=== PATIENT | male | born 1965 | race Caucasian/White ===

== ENCOUNTER 2016-08-23 00:34 | Inpatient (IN) | payer OTHER ==
[~2016-08-23] VITALS: Ht 175.3 cm; Wt 90.7 kg
--- NOTE | 2016-08-23 01:32 | NUR ---
PT BIB AMBULANCE WITH C/O CHEST PRESSURE LIKE PAIN TO MID CHEST 06/02 SINCE 11PM.
[2016-08-23 02:11] LABS: CALCIUM 8.3 mg/dL (8.5-10.1); CARBON DIOXIDE 26.8 mmol/L (21-32); CHLORIDE SERUM 106 mmol/L (98-107); CREATININE SERUM 1.2 mg/dL (0.7-1.3); GFR1 > 60 mL/min; GLUCOSE SERUM 96 mg/dL (74-106); POTASSIUM SERUM 3.8 mmol/L (3.5-5.1); SODIUM SERUM 142 mmol/L (136-145)
[2016-08-23 02:13] LABS: PLATELET COUNT 221 x10^3mcL (130-400); RED CELL DISTRIBUTION WIDTH 12.2 % (11.5-14.5)
[2016-08-23 02:17] LABS: ALBUMIN 3.5 g/dL (3.4-5.0); ALKALINE PHOSPHATASE 43 U/L (46-116); ALT/SGPT 37 U/L (16-63); AST/SGOT 18 U/L (15-37)
--- NOTE | 2016-08-23 02:27 | NUR ---
PT RESTING IN BED WITH EYES CLOSED. NO SIGNS OF DISTRESS NOTED AT THIS TIME.
[2016-08-23] MEDS ORDERED: ZESTRIL20 MG PO (03:57)
--- NOTE | 2016-08-23 03:59 | NUR ---
PT SITTING UP RESTING IN BED WITH NO C/O PAIN AT THIS TIME.
--- NOTE | 2016-08-23 04:15 | NUR ---
PT UP TO RESTROOM.
--- NOTE | 2016-08-23 04:18 | NUR ---
REPORT GIVEN TO MERY BAIRES.
[2016-08-23 04:26] LABS: microscopic required? NO
[2016-08-23] MEDS ORDERED: HYDROXYCHLOROQ200 MG PO (04:36)
[2016-08-23] MEDS ORDERED: CYCLOBENZAPRINE10 MG PO (04:37)
[2016-08-23] MEDS ORDERED: [UNRECOGNIZED DRUG - CODE] PO (04:38)
--- NOTE | 2016-08-23 04:38 | NUR ---
DR FISCHER AT BEDSIDE.
[2016-08-23 04:47] LABS: urine erythrocyte NEGATIVE (NEGATIVE)
[2016-08-23 04:53] LABS: CHOLESTEROL/HDL RATIO 3.4
[2016-08-23 04:53] LABS: AMPHETAMINE QUAL UR NONE DETECTED (NEG <=1000)
[2016-08-23 05:01] LABS: T3 TOTAL 1.48 ng/mL
[2016-08-23 05:04] LABS: FREE T4 1.05 ng/dL (0.76-1.46); FREE THYROXINE INDEX 3.1 ug/dL (1.4-4.5); T4(THYROXINE) 8.4 ug/dL (4.7-13.3)
--- NOTE | 2016-08-23 05:19 | NUR ---
RECEIVED PT FROM ED. NO ACUTE DISTRESS. A/O X4. NO RESPIRATORY DISTRESS NOTED. PT STATES CHEST PRESSURE PAIN 04/04. BOWEL SOUNDS ACTIVE, LAST BM 08/23/16. VOIDING WELL. AMBULATORY. SKIN INTACT. IV PATENT AND INTACT. ORIENTED PT TO ROOM. BED IN LOWEST POSITION, SIDE RAILS UP X2, CALL LIGHT WITHIN REACH. WILL CONTINUE TO MONITOR.
[2016-08-23 05:20] VITALS: BP 121/96
--- NOTE | 2016-08-23 06:20 | NUR ---
PT CURRENTLY RESTING IN BED, NO ACUTE DISTRESS. ALL NEEDS MET AND ATTENDED TO. NO SIGNIFICANT CHANGES. IV PATENT AND INTACT. BED IN LOWEST POSITION, SIDE RAILS UP X2, SCDS IN PLACE, CALL LIGHT WITHIN REACH. WILL ENDORSE CARE TO ONCOMING NURSE.
--- NOTE | 2016-08-23 07:50 | NUR ---
RECEIVED PT IN BED. ASSESSED AND DOCUMENTED. DENIES PAIN THIS TIME. SAFTEY PRECAUTIONS ON. WILL MONITOR.
[2016-08-23 10:50] VITALS: BP 121/85
--- NOTE | 2016-08-23 12:00 | NUR ---
PT RESTING IN BED COMFORTABLY. DENIES CHEST PAIN.
[2016-08-23 13:55] VITALS: BP 132/102
--- NOTE | 2016-08-23 14:16 | NUR ---
echocardiogram completed
--- NOTE | 2016-08-23 17:00 | NUR ---
CALLED REMIND HIM ABOUT TOLD PT AND PT CAN GO HOME TODAY AND PT CAN DO STRESS TEST OUT PT.
--- NOTE | 2016-08-23 17:40 | NUR ---
PT RESTING IN BED COMFORTABLY. SAID PT IS NOT GOING HOME TODAY AND INFORMED PT ABOUT THAT.
[2016-08-23 18:29] VITALS: BP 126/97
--- NOTE | 2016-08-23 19:00 | NUR ---
PT IS STABLE. GAVE REPORT TO NEXT SHIFT NURSE.
--- NOTE | 2016-08-23 19:40 | NUR ---
RECEIVED PT IN BED AWAKE, ALERT,ORIENTED X4. NO SOB ON RA. BOWEL SOUNDS ACTIVE. HE DENIES HAVING CHEST PAIN AT THIS TIME. NO C/O HEADACHE AND DIZZINESS. DR. FISCHER INFORMED THAT PT IS EXPECTING TO BE D/CD TONIGHT AND PT W/ SOME QUESTIONS TO ASK.
--- NOTE | 2016-08-23 19:50 | NUR ---
DR. FISCHER IN ROOM AND TALKING TO THE PT AND HIS . DR. FISCHER ANSWERED ALL QUESTIONS AND CONCERNS OF THE PT.
[2016-08-23 21:01] VITALS: BP 143/96
--- NOTE | 2016-08-24 04:15 | NUR ---
PT ASLEEP.. NO C/O DISCOMFORT.
--- NOTE | 2016-08-24 05:07 | NUR ---
PT SLEPT THROUGH THE NIGHT. HE HAD NO C/O CHEST PAIN AND PALPITATIONS. NO C/O DISCOMFORT. HE REMAINS ALERT AND ORIENTED X4. W/ HL TO RTAC INTACT.
[2016-08-24 05:16] VITALS: BP 106/81
[2016-08-24 06:10] LABS: BASOPHIL % 0.4 % (0-2); PLATELET COUNT 186 x10^3mcL (130-400); RED CELL DISTRIBUTION WIDTH 12.5 % (11.5-14.5)
[2016-08-24 06:29] LABS: CARBON DIOXIDE 29.3 mmol/L (21-32); CHLORIDE SERUM 105 mmol/L (98-107); CREATININE SERUM 1.3 mg/dL (0.7-1.3); GFR1 > 60 mL/min; GLUCOSE SERUM 97 mg/dL (74-106); PHOSPHOROUS 4.5 mg/dL (2.5-4.9); POTASSIUM SERUM 4.3 mmol/L (3.5-5.1); SODIUM SERUM 143 mmol/L (136-145)
--- NOTE | 2016-08-24 06:40 | NUR ---
TELE. MONITOR DICONTINUED ORDERED.
--- NOTE | 2016-08-24 07:45 | NUR ---
RECEIVED PT IN BED. ASSESSED AND DOCUMENTED. DENIES PAIN THIS TIME. SAFTEY PRECAUTIONS ON. WILL MONITOR.
[2016-08-24 08:23] VITALS: BP 131/87
[2016-08-24] MEDS ORDERED: GOOD SENSE OMEP20 MG PO (11:02)
[2016-08-24] MEDS ORDERED: ECO81 PO (11:03)
[2016-08-24] MEDS ORDERED: LIPI10 PO (11:30)
[2016-08-24 12:00] VITALS: BP 131/87
--- NOTE | 2016-08-24 13:05 | NUR ---
DISCHARGE INSTRUCTIONS AND PRESCRIPTIONS GIVEN. PB SIGNED AND SENT WITH PT. IV REMOVED AND DRESSING APPLIED. PT DENIES CHEST PAIN. STUDENT NURSE TOOK PT TO DC OFFICE.OFFERED WHEELCHAIR BUT PT STATED HE WANT TO WALK. PT'S IN THE LOBBY WAITING FOR HIM.PT IS STABLE AND DC HOME.
== END 2016-08-24 13:15 | disposition home or self-care (01) | DRG 392 ==
LOC: ED 00:34 → DU 03:49 → MU 03:49 → DU 04:59 → MU 08-24 06:38
PROVIDERS: Emergency Medicine; ADMIT Family Medicine
DX: K21.9 Gastro-esophageal reflux disease without esophagitis (principal); I10 Essential (primary) hypertension; M62.830 Muscle spasm of back; E83.51 Hypocalcemia; E78.5 Hyperlipidemia, unspecified; I16.0 Hypertensive urgency; Z85.46 Personal history of malignant neoplasm of prostate; Z90.79 Acquired absence of other genital organ(s); Z79.899 Other long term (current) drug therapy; Z72.89 Other problems related to lifestyle
CPT/HCPCS: 83880; 84439; J7030